=== PATIENT | female | born 1990 | race Two or more races ===

== ENCOUNTER 2020-04-03 05:30 | Day surgery (SDC) | payer OTHER | END 2020-04-03 10:45 | disposition home or self-care (01) | LOC: CIR.AMB 05:30 | PROVIDERS: ATTEND Obstetrics & Gynecology Maternal & Fetal Medicine | DX: N84.0 Polyp of corpus uteri (principal); Z20.828 Contact with and (suspected) exposure to other viral communicable diseases ==

== ENCOUNTER 2021-07-19 04:34 | Emergency (ER) | payer OTHER ==
[~2021-07-19] VITALS: Ht 162.6 cm; Wt 47.6 kg
[2021-07-19] MEDS ORDERED: ZITHROMAX200 MG PO (08:30)
== END 2021-07-19 08:46 | disposition home or self-care (01) ==
LOC: ER 04:34
DX: J06.9 Acute upper respiratory infection, unspecified (principal); B34.9 Viral infection, unspecified; Z3A.10 10 weeks gestation of pregnancy

== ENCOUNTER 2022-01-30 13:30 | Inpatient (IN) | payer OTHER ==
[~2022-01-30] VITALS: Ht 162.6 cm; Wt 53.5 kg
[~2022-01-30 13:30] MED LIST: ZITHROMAX200 MG PO
[2022-02-08] MEDS ORDERED: IRON236 MG PO (06:55)
[2022-02-08] MEDS ORDERED: PRENATAL CAPLE1 EAC1 PO (06:55)
== END 2022-02-10 13:51 | disposition home or self-care (01) | DRG 807 ==
LOC: LDR 02-08 01:32 → OB/GYN 02-08 01:32
PROVIDERS: ADMIT Obstetrics & Gynecology Maternal & Fetal Medicine; ATTEND Obstetrics & Gynecology Maternal & Fetal Medicine
PROC: 10E0XZZ Delivery of Products of Conception, External Approach (ICD-10-PCS; principal; 2022-02-08)
PROC: 0KQM0ZZ Repair Perineum Muscle, Open Approach (ICD-10-PCS; 2022-02-08)
PROC: 4A1HXCZ Monitoring of Products of Conception, Cardiac Rate, External Approach (ICD-10-PCS; 2022-02-08)
DX: O70.1 Second degree perineal laceration during delivery (principal); Z3A.39 39 weeks gestation of pregnancy; Z37.0 Single live birth; Z20.822 Contact with and (suspected) exposure to COVID-19

== ENCOUNTER 2022-02-06 10:08 | Outpatient (CLI) | payer OTHER | END 2022-02-06 11:08 | disposition home or self-care (01) | LOC: NST 10:08 | PROVIDERS: ATTEND Obstetrics & Gynecology Maternal & Fetal Medicine | DX: Z34.83 Encounter for supervision of other normal pregnancy, third trimester (principal) ==